=== PATIENT | female | born 1965 | race Caucasian/White ===

== ENCOUNTER 2023-03-16 12:37 | Emergency (ER) | payer BC, OTHER, SELFPAY ==
[2023-03-16 13:05] VITALS: BP 108/74; PULSE 79; RESP 18; TEMP 36.3; O2SAT 97
--- NOTE | 2023-03-16 13:47 | ED.NURSE ---
dr. mariscal saw pt and gave verbal Dc. prescription given prescription for triamcinolone cream 0.1% 15 grams. apply to affected areas 2-3 times daily.
--- NOTE | 2023-03-24 16:42 | ED_ITS ---
HPI - Skin/Abscess/Foreign Bdy General Chief complaint: Skin/Abscess/Foreign Body History of Present Illness HPI narrative: This 57-year-old female came in at a time when computer system was not working so no note was generated initially. She comes in with a chief complaint of some rash which is pruritic. She reported some rash on her back and upper extremities. The symptoms have dissipated at the time of her visit here. She does not report any fever or other symptoms. She is not aware of any new exposures. Related Data Home Medications Medication Instructions Recorded Confirmed levothyroxine 50 mcg tablet 50 mcg PO DAILY 03/16/23 03/16/23 lisinopril 20 1 tab PO DAILY 03/16/23 03/16/23 mg-hydrochlorothiazide 25 mg tablet Allergies Allergy/AdvReac Type Severity Reaction Status Date / Time No Known Drug Allergies Allergy Verified 03/16/23 13:44 Review of Systems Status of ROS: Reports: 10 or more systems reviewed and unremarkable except as noted in History and below Narrative: Constitutional: No fevers, no weight gain or loss. Eyes: No discharge. No vision changes. HENT: No congestion, no sore throat, no ear pain. Cardiovascular: No chest pain, no palpitations. Respiratory: No shortness of breath, no wheezes, no cough. Gastrointestinal: No abdominal pain, no vomiting, no diarrhea. Genitourinary: No dysuria, no hematuria. Musculoskeletal: Normal range of motion. Skin: Rash as described above. Neurological: No dizziness, weakness, sensory change, speech change. Endo/Heme/Allergies: No bruising or bleeding. No polydipsia. Pysch: no suicidality, no anxiety, no insomnia. All other systems reviewed and are negative. PFSH PFS Social History Smoking Status: Unknown if ever smoked Exam Narrative: Exam Narrative: Constitutional: Well-developed, well-nourished, no acute distress. HEENT: Normocephalic, atraumatic. Neck: Normal range of motion. Nontender. Supple. Heart: Intact distal pulses. Lungs: No chest discomfort. No wheezes, rhonchi, or rales. Abdomen: Nontender. Back: Normal range of motion. Extremities: Normal range of motion. No injury. Skin: Intact. Warm. No erythema or pallor. Few areas of mild erythema related to a rash. Neurologic: No altered sensation. No weakness. Alert and oriented. Psychiatric: No suicidality. No anxiety or depression. No insomnia. Nursing notes and vitals signs are reviewed. Course Vital Signs Vital signs: Initial Vital Signs Temperature 97.4 F L 03/16/23 13:05 Temperature Source Temporal Artery Scan 03/16/23 13:05 Pulse Rate 79 03/16/23 13:05 Respiratory Rate 18 03/16/23 13:05 Blood Pressure 108/74 03/16/23 13:05 Blood Pressure Mean 85 03/16/23 13:05 Blood Pressure Position Sitting 03/16/23 13:05 Pulse Oximetry 97 03/16/23 13:05 Oxygen Delivery Method Room Air 03/16/23 13:05 Vital Signs Temperature 97.4 F L 03/16/23 13:05 Pulse Rate 79 03/16/23 13:05 Respiratory Rate 18 03/16/23 13:05 Blood Pressure 108/74 03/16/23 13:05 Pulse Oximetry 97 03/16/23 13:05 Oxygen Delivery Method Room Air 03/16/23 13:05 Temperature 97.4 F L 03/16/23 13:05 Pulse Rate 79 03/16/23 13:05 Respiratory Rate 18 03/16/23 13:05 Blood Pressure 108/74 03/16/23 13:05 Pulse Oximetry 97 03/16/23 13:05 Oxygen Delivery Method Room Air 03/16/23 13:05 MDM - Skin/Abscess/Foreign Bdy MDM Narrative Medical decision making narrative: This patient reports symptoms of a rash over the past day or so. Symptoms have actually improved recently. She has normal vital signs and is in no acute dis tress. It seems appropriate to treat with a steroid cream. A prescription for triamcinolone 0.1% cream is provided. Discharge Plan Discharge Clinical Impression: Rash Patient Disposition: Home, Self-Care Condition: Stable Additional Instructions: Take medication as prescribed and needed. Follow up with MD or return if worsening. Prescriptions: No Action levothyroxine 50 mcg tablet 50 mcg PO DAILY lisinopril-hydrochlorothiazide 20-25 mg tablet 1 tab PO DAILY Follow Up/Referrals: Amaya Giordano DO [Primary Care Provider] -
== END 2023-03-16 14:18 | disposition home or self-care (01) ==
LOC: ED 13:51
PROVIDERS: Emergency Provider Emergency Medicine Emergency Medical Services; PCP Family Medicine
DX: R21 Rash and other nonspecific skin eruption (principal)
CPT/HCPCS: 99283; 99284